=== PATIENT | female | born 1955 | race Caucasian/White ===

== ENCOUNTER 2016-06-13 11:09 | Emergency (ER) | payer OTHER ==
[~2016-06-13] VITALS: Ht 170.2 cm; Wt 76.5 kg
[~2016-06-13 11:09] MED LIST: ALBUTEROL SULF8.5 GM IH; CALCIUM W/VIT1 EACH PO; CLARITIN10 M3 PO; Combivent IH; FLONASE16 G1 BOTH NARES; Habitrol,Nicoderm CQ TD; Levaquin PO; Lopressor PO; MOTRIN800 MG PO; MUCUS ER600 MG PO; PRAVASTATIN SOD40 MG PO; PriLOSEC PO; SUDAFED 12-HOU120 MG PO; Ultram PO
[2016-06-13] MEDS ORDERED: NEXIUM 24HR20 MG PO (11:27)
[2016-06-13] MEDS ORDERED: ASCORBIC ACID100 MG PO (11:28)
[2016-06-13] MEDS ORDERED: VITAMIN B122500 MCG PO (11:28)
[2016-06-13] MEDS ORDERED: MUCUS ER600 MG PO (11:57)
[2016-06-13] MEDS ORDERED: ROBITUSSIN NIG118 ML PO (11:57)
[2016-06-13] MEDS ORDERED: PROAIR HFA8.5 GM IH (11:57)
[2016-06-13] MEDS ORDERED: TESSALON PERLE100 MG PO (11:57)
[2016-06-13 13:24] VITALS: BP 140/76
== END 2016-06-13 13:40 | disposition home or self-care (01) ==
LOC: EME 11:09 → EXP 11:09
DX: J20.9 Acute bronchitis, unspecified (principal); J30.2 Other seasonal allergic rhinitis; H61.21 Impacted cerumen, right ear; F17.200 Nicotine dependence, unspecified, uncomplicated; Z71.6 Tobacco abuse counseling; E78.5 Hyperlipidemia, unspecified; I10 Essential (primary) hypertension
CPT/HCPCS: 94640; 99281; 99283